=== PATIENT | female | born 1940 | race Caucasian/White ===

== ENCOUNTER → 2017-08-21 | Outpatient (CLI) | payer OTHER, MEDICAID ==
[~2017-08-21] MED LIST: ALBU1.25 NEB; AMLO5TAB2 PO; DOXY100C15 PO; FURO40TA6 PO; GABA300C10 PO; HYDR25TA11 PO; LEVO500T47 PO; LISI30TA4 PO; NICO10CA INH; POTA10TA11 PO; TIZA4CAP PO; TRAM50TA2 PO; TRAZ50TA18 PO
== END | disposition home or self-care (01) ==
LOC: CFH 14:15
PROVIDERS: ATTEND Nurse Practitioner Family
DX: R34 Anuria and oliguria (principal)
CPT/HCPCS: 76775

== ENCOUNTER 2020-11-26 11:40 | Emergency (ER) | payer MEDICARE ==
[~2020-11-26] VITALS: Ht 160 cm; Wt 90.0 kg
[~2020-11-26 11:40] MED LIST changes: +AMLO-150 PO; -AMLO5TAB2 PO; +FLUT1AER INH; +FURO-93 PO; +GLIM2TAB7 PO; +GLIM4TAB8 PO; +HYDR-826 PO; -HYDR25TA11 PO; +HYDROCHLOROTH12.5 MG PO; +LOSA50TA14 PO; +METO2.5T PO; +METO5TAB5 PO; +NITR100C56 PO; +POTA20TA6 PO; +SENN-177 PO; -TRAZ50TA18 PO; +TRAZ50TA66 PO
--- NOTE | 2020-11-26 11:52 | NUR ---
Brought in by KATHERYN from home with chief complaint of GLF while walking to mailbox. Pt denies loc, or hitting head. Lac to left leg and left arm- bleeding controlled. Report to Jasmin THOMSON
--- NOTE | 2020-11-26 12:17 | NUR ---
MD Harding at bedside for eval.
[2020-11-26] MEDS ORDERED: NEOSPORIN OINT. PKT 1 PACKET ONE (12:25)
--- NOTE | 2020-11-26 12:37 | NUR ---
Sandra, EMT at bedside to clean and dress wounds.
[2020-11-26 13:04] VITALS: BP 156/86
[2020-11-26] MEDS ORDERED: CEFTRIAXONE PMX 1GM/50ML 50 ML ONE (13:22)
== END 2020-11-26 13:08 | disposition home or self-care (01) ==
LOC: ED 13:02
DX: S71.102A Unspecified open wound, left thigh, initial encounter (principal); I10 Essential (primary) hypertension; E11.9 Type 2 diabetes mellitus without complications; Z90.89 Acquired absence of other organs; Z90.49 Acquired absence of other specified parts of digestive tract; Z88.0 Allergy status to penicillin; W18.30XA Fall on same level, unspecified, initial encounter; Y93.89 Activity, other specified; Y92.009 Unspecified place in unspecified non-institutional (private) residence as the place of occurrence of the external cause; Y99.8 Other external cause status
CPT/HCPCS: 99283